=== PATIENT | female | born 1930 | race Caucasian/White ===

== ENCOUNTER 2016-12-16 13:48 | Inpatient (IN) | payer MEDICARE ==
--- NOTE | ~2016-12-16 | HP ---
Unit #: [id number] #: [id number] Patient: SASKIA CAROLINA [id number] [address] [place], [place] [address] [id number] I MR#: [id number] NAME: SASKIA CAROLINA ROOM: 55 Age: 86 Sex: F Admission Date: 12/16/2016 : 1930 Attending Physician: Brennen Barrow M.D. Primary Care Physician: Melchor Serna M.D. HISTORY AND PHYSICAL REASON FOR ADMISSION Atrial fibrillation with RVR. HISTORY OF PRESENT ILLNESS The patient is an 86-year-old white female who is known to Dr. Barrow for a history of paroxysmal atrial fibrillation, status post cardioversion four to five years ago, hypertension, and COPD. Patient presented to [facility] ED on December 16, 2016, at 11 a.m., with complaints of palpitations. Patient states that the palpitations began Friday night when she took her normal scheduled meds. She states that the palpitations seemed to calm down where she was able to go to bed and sleep, and then when she woke up the next day, she noted that she still was having some palpitation feelings. She took her meds again on Friday; however, this time she did not notice any real relief from it. She did not present to the ER until today at 11 a.m. because she became more short of breath. Patient denies any kind of chest pain, pressure, or tightness, no nausea, vomiting, or diarrhea, no fevers, no syncope, and no palpitations prior to Friday night. Patient also has noted some swelling in her lower extremities. She does take Lasix as needed at home for swelling and states that the swelling just developed over the last day or so, but she did not take her Lasix today. Patient had a cardiac catheterization in June 2015 that showed mild , 50% proximal LAD stenosis, 50-60% mid RCA stenosis, and EF of 60%. On arrival to the ED, the patient's blood pressure was noted to be 99/87, pulse 160, temperature 97.8, and saturations were 93% on room air. EKG in the ER revealed atrial fibrillation with RVR with a rate of 151. Patient was initially started on a Cardizem drip. However, shortly after getting the Cardizem, patient's blood pressure dropped to systolic of 70. Therefore, patient had to have the Cardizem turned off. She was given a 500 mL bolus, as well as 150 mg amiodarone bolus. We are asked to see the patient and admit for evaluation of atrial fibrillation with RVR. PAST MEDICAL HISTORY 1. Paroxysmal atrial fibrillation, status post cardioversion four to five years ago. She has been in normal sinus rhythm since. Last EKG here was in 2014 that did show normal sinus rhythm. 2. Hypertension. 3. Chronic obstructive pulmonary disease but not on home O2. 4. Cardiac catheterization in June 2015 that showed mild , 50% proximal LAD stenosis, 50-60% mid RCA, and an EF of 60%. PAST SURGICAL HISTORY Unit #: [id number] #: [id number] Patient: SASKIA CAROLINA 1. Cholecystectomy. 2. Right knee surgery. 3. Left hip surgery. 4. Left knee arthroscopy. SOCIAL HISTORY Patient has never been a smoker but has had some previous secondhand smoke exposure from her approximately 20 years ago. FAMILY HISTORY No known family history of heart disease. ALLERGIES SULFA AND ASPIRIN. HOME MEDICATIONS 1. Vitamin C 500 mg p.o. daily. 2. Vitamin B 1 tab p.o. daily. 3. Coumadin 5 mg p.o. every day except Mondays and Fridays when she takes 2.5 mg. 4. Alprazolam 0.5 mg p.o. 3 times daily as needed for anxiety. 5. Calcium plus vitamin D3 at 600 mg p.o. daily. 6. Cardizem 240 mg p.o. daily. 7. Neurontin 300 mg p.o. 3 times daily. 8. Meclizine 25 mg p.o. as needed for dizziness. 9. Lawnside 10/325 at 1 tab p.o. every 6 hours as needed for pain. 10. Amiodarone 100 mg p.o. daily. 11. Pramipexole dihydrochloride 0.25 mg p.o. twice daily. 12. Phenergan 25 mg p.o. as needed for nausea. 13. Tylenol 325 mg p.o. every 6 hours as needed for pain. 14. VESIcare 5 mg p.o. daily. REVIEW OF SYSTEMS See History of Present Illness. PHYSICAL EXAMINATION GENERAL: This is an 86-year-old white female who is alert, oriented x3, and in no apparent distress. VITAL SIGNS: Blood pressure 89/53, pulse 134, temperature 98.2, and respirations 16. HEENT: Pupils are equal, round, and reactive. Oral mucosa is moist. NECK: No JVD, no thyromegaly, no lymphadenopathy. HEART: S1 and S2, irregularly irregular. LUNGS: Diminished. ABDOMEN: Soft. Bowel sounds positive. Nontender and nondistended. EXTREMITIES: With 2+ bilateral (1) edema. NEUROLOGICAL: No neuro deficits noted. DIAGNOSTIC STUDIES LABORATORY: No labs have been resulted at this time. CMP, magnesium, TSH, CBC, and PT-INR have been ordered, and results are pending. IMAGING: Chest x-ray pending. IMPRESSION 1. Atrial fibrillation with RVR with a history of paroxysmal atrial fibrillation with cardioversion four to five years ago. 2. Hypertension, now with hypotension. Unit #: [id number] #: [id number] Patient: SASKIA CAROLINA 3. Chronic obstructive pulmonary disease. PLAN Discussed the plan of care with Dr. Barrow via the phone, who wants the patient to be placed on an amiodarone drip and also to give a one-time dose of digoxin until the labs are resulted and kidney function is verified. Will give one dose of IV digoxin of 0.25 mg now. Will check on labs, as well as obtain a 2D echo and will start therapeutic Lovenox dose at 1 mg/kg subcutaneous until INR is known. Dr. Barrow to see with further recommendations. Further recommendations pending current workup, as well as lab results. Dictated by Ruthy Rivers APRN for Amanda Arita TD: 12/16/2016 21:46 JOB #: [id number] HISTORY AND PHYSICAL X X HISTORY AND PHYSICAL
--- NOTE | ~2016-12-16 | DS ---
Unit #: [id number] #: [id number] Patient: SASKIA CAROLINA [id number] [address] [address] [id number] I MR#: [id number] NAME: SASKIA CAROLINA. ROOM: [facility] Age: 86 Sex: F Admission Date: 12/17/2016 : 1930 Discharge Date: 12/21/2016 Attending Physician: Brennen Barrow M.D. Primary Care Physician: Melchor Serna M.D. DISCHARGE SUMMARY DISCHARGE DIAGNOSES 1. Acute hypoxic respiratory failure. 2. Paroxysmal atrial fibrillation with recurrent atrial fibrillation with rapid ventricular response on chronic anticoagulation with Coumadin. 3. Acute systolic congestive heart failure. 4. Acute on chronic left ventricular ejection fraction of 20% to 25%. 5. Valvular heart disease with severe aortic stenosis and mitral regurgitation, with moderate to severe tricuspid regurgitation. 6. Moderate to severe pulmonary hypertension. 7. Borderline hypotension. 8. With a history of hypertension. 9. Chronic obstructive pulmonary disease. 10. Indeterminate troponin. DISCHARGE MEDICATIONS 1. Albuterol/Atrovent 3 mL inhalation q.i.d. and p.r.n. 2. Acetaminophen 325, one to two tabs p.o. q.6 hours. p.r.n. pain. 3. Magnesium oxide 400 mg 1 tab p.o. b.i.d. 4. Warfarin 2.5 mg p.o. daily. 5. Neurontin 300 mg p.o. t.i.d. 6. Zofran 4 mg IV q.6 hour p.r.n. nausea. 7. Mirapex 0.25 mg p.o. q.h.s. 8. Lanoxin 0.25 mg p.o. daily. 9. Sotalol 60 mg p.o. b.i.d. 10. Bisacodyl 5 mg p.o. b.i.d. p.r.n. constipation. 11. MiraLAX 17 g p.o. daily p.r.n. constipation. 12. Furosemide 20 mg p.o. b.i.d. 13. VESIcare 5 mg p.o. daily. 14. Vitamin B complex with vitamin C 1 tab p.o. daily. 15. Hydrocodone 10/325 one tab p.o. q.6 hours p.r.n. pain. 16. Calcitonin 3700 IU/3.7 mL nasal spray one spray in one nostril daily, alternating nostrils. 17. Protonix 40 mg p.o. daily. 18. Calcium plus vitamin D 500 mg p.o. daily. 19. Potassium chloride 20 mEq tablets, 2 tablets p.o. daily. 20. Ascorbic acid 500 mg p.o. daily. HOSPITAL COURSE This is a pleasant 86-year-old female with a past medical history of paroxysmal atrial fibrillation with also a history of cardioversion four to five years ago, hypertension, and COPD. She initially presented to [facility] emergency room on 12/16/2016 with complaints of palpitations. Patient was found to be in Unit #: [id number] #: [id number] Patient: SASKIA CAROLINA atrial fibrillation with RVR. She denied any complaints of chest pain, pressure or tightness. No nausea, vomiting or diarrhea. No fever, syncope or palpitations prior to presentation to the emergency department. She did report she had some swelling in her lower extremities and takes Lasix at home as needed. Of note, the patient did have cardiac catheterization in 06/2015 that showed mild aortic stenosis, 50% proximal LAD stenosis, and 50% to 60% mid RCA stenosis and an EF of 60%. In the emergency room the patient was started initially on a Cardizem drip; however, her blood pressure did not tolerate that and the drip was discontinued. She was give IV fluids, as well as 150 mg amiodarone bolus. Pulmonary was also consulted during this admission secondary to acute hypoxic respiratory failure. The patient was placed on BiPAP overnight and was doing better. She has since been weaned to high flow oxygen during the day and wears BiPAP at night. During this hospitalization the patient had a repeat 2D echocardiogram, which showed severely reduced left ventricular ejection fraction, which was noted to be 20% to 25%, moderate to severe dilated left atrium, mildly dilated right ventricle, severe aortic stenosis was noted, as well as severe mitral regurgitation. The patient also had moderate to severe tricuspid regurgitation, RVSP was 50 mmHg. The patient was also noted to be in acute on chronic systolic congestive heart failure and was diuresed accordingly. Her EKG showed atrial fibrillation with RVR. No acute ischemic change. Her troponin levels remained indeterminate throughout the hospitalization with a downward trend. She did not rule in for any acute myocardial infarction. It was notable throughout her hospitalization. The patient's blood pressure did continue to rule low. Therefore, her calcium channel rao was discontinued secondary to hypotension and she was started on sotalol for heart rate control. She was unable also to tolerate beta-rao or heart calcium channel rao for heart control, secondary to hypotension. Also her Coumadin dose was discontinued during this admission to 2.5 mg p.o. q.h.s. At present she is resting in bed. She appears comfortable. There is no complaints of chest pain or shortness of breath. She remains on high flow oxygen during the day and will be placed on BiPAP in the evening. The patient is a DNR. Her cardiac rhythm has remained stable. She does have periods still of rapid atrial fibrillation, rate in the 110s and her blood pressure has remained borderline low but her mean has remained greater than 60. ENTRY LEVEL ACCOUNT MANAGER Pulmonary, Dr. Toney. DIAGNOSTIC STUDIES IMAGING STUDIES: Last chest x-ray showed no evidence of pneumothorax, improvement of small bilateral pleural effusions were noted with improved bilateral lung opacities. There is persistent basilar atelectasis versus pneumonia. Cardiomegaly is noted. Calcified of the thoracic aorta is noted. Chest x-ray of the abdomen was performed, which showed moderate gaseous distention of the stomach. No air filled loops of the larger small bowel. Moderate stool burden. Postop changes of the left hip replacement and lumbar surgery. Unit #: [id number] #: [id number] Patient: SASKIA CAROLINA LABORATORY STUDIES: Glucose 87, BUN 25, creatinine 0.7, sodium 131, potassium 4.1, chloride 99, CO2 28, phosphorus 3.2, albumin 2.9. Liver function tests were normal. TSH 0.42. Digoxin level was 1.8. PT 31.4, INR 2.9, hemoglobin 12.6, hematocrit 38.3, WBC 6.8, platelet 278. PHYSICAL EXAMINATION VITAL SIGNS: Temperature 98.5, respiratory rate 20, pulse 96-118. Highest blood pressure was 131/49, lowest being 87/53, BMI 35. GENERAL: This is a pleasant, obese, elderly female who is in no acute distress. HEENT: Pupils are equal and round. Oral mucosa is moist. NECK: No JVD. No thyromegaly. No lymphadenopathy. HEART: S1 and S2. Positive for systolic murmur best heard at the base, irregularly irregular. LUNGS: Clear to auscultation. No adventitious breath sounds. No rales, rhonchi and no wheezes. ABDOMEN: Soft, obese, nontender, and nondistended. EXTREMITIES: Pulses are palpable. No leg edema, clubbing or cyanosis noted. NEUROLOGIC: She is awake, alert and oriented. Moves all extremities equally. Follows commands with ease. DISCHARGE INSTRUCTIONS Patient has been seen and evaluated by Dr. Barrow today, as well as by the pulmonary physician, Dr. Toney. It has been determined that she is stable for transfer to [facility] today. Her cardiac rhythm remains atrial fibrillation with intermittent fast rates. She is on chronic anticoagulation with Coumadin and her INR is therapeutic. Her blood pressure is borderline low. This was discussed with Dr. Barrow and he is okay with that as long as her mean arterial pressures are above 60, which it has been. The patient, during hospitalization, has been unable to tolerate calcium channel blockers or beta-blockers secondary to severe hypotension. Therefore, she was changed over to antiarrhythmic with sotalol. She will be discharged with high flow O2 during the day and will be placed on BiPAP in the evening. Please see above for discharge medications. The importance of fluid restriction and low sodium was discussed with the patient. It has been determined she is okay to [facility] to a nonmonitored bed. She is also advised to follow up with Dr. Parmar in approximately three to four weeks. She will be sent later today via EMS. Patient is a DNR. Dictated by... Nette Enriquez A.P.R.N. for Amanda Juarez/alex TD: 12/21/2016 16:10 JOB #: [id number] Unit #: [id number] #: [id number] Patient: SASKIA CAROLINA DISCHARGE SUMMARY X Nette Enriquez APRN X DISCHARGE SUMMARY
--- NOTE | ~2016-12-16 | CR7 ---
[facility] A Service of [facility] RADIOLOGY TEXT RESULTS PATIENT: SASKIA CAROLINA LOCATION: [address] : [birth year] UNIT #: [id number] AGE: [address]: Brennen Barrow MD SEX: F ORDER DR: [id number] [facility] [address] [place], [place] [address] [id number] I MR#: [id number] #: [id number] NAME: SASKIA CAROLINA. : 1930 SEX: F STUDY DATE/TIME: 12/17/2016 18:33 UNIT: [facility] ROOM: [facility] STUDY DESCRIPTION: CR Abdomen Single AP View Attending Physician: Brennen Barrow M.D. Ordering Physician: Diaz Toney M.D. Primary Care Physician: Melchor Serna M.D. MEDICAL IMAGING REPORT This report is preliminary unless electronic signature is present EXAM Frontal abdomen, 12/17/2016 INDICATIONS Abnormal abdominal distension, short of air, pain, nausea symptoms a week. TECHNIQUE Frontal abdomen was performed. COMPARISON 01/17/2016 FINDINGS The bones are osteoporotic. The patient is status post total left hip replacement. There are vertebroplasty/kyphoplasty changes at L4 and L5. There is gaseous distension of the stomach. No dilated air-filled loops of bowel are seen. This may reflect fluid-filled loops of bowel. Moderate stool burden in the rectum and right colon. No mass effect or concerning calcifications. Bibasilar opacities may reflect edema or infiltrates. This could be better assessed with a dedicated chest x-ray. IMPRESSION 1. There is moderate gaseous distension of the stomach, no dilated air-filled loops of large or small bowel. 2. Moderate stool burden in the rectosigmoid colon and right colon. 3. Bibasilar infiltrates. This would be better assessed with a dedicated chest x-ray. 4. Postop changes of left hip replacement and lumbar surgery. Dictated by... Sher Godoy M.D. [facility] A Service of [facility] RADIOLOGY TEXT RESULTS PATIENT: SASKIA CAROLINA LOCATION: [address] : [birth year] UNIT #: [id number] AGE: [address]: Brennen Barrow MD SEX: F ORDER DR: THIS IS AN ELECTRONICALLY VERIFIED REPORT Sher Godoy M.D. at 12/18/2016 7:46 AM DERIAN/anay TD: 12/18/2016 03:18 JOB #: [id number] MEDICAL IMAGING REPORT COPY
--- NOTE | ~2016-12-16 | CR72 ---
[facility] A Service of [facility] RADIOLOGY TEXT RESULTS PATIENT: SASKIA CAROLINA LOCATION: [address] : [birth year] UNIT #: [id number] AGE: [address]: Brennen Barrow MD SEX: F ORDER DR: [id number] [facility] [address] [place], [place] [address] [id number] I MR#: [id number] Acc #: [id number] NAME: SASKIA CAROLINA : 1930 SEX: F STUDY DATE/TIME: 12/19/2016 4:21 UNIT: [facility] ROOM: [facility] STUDY DESCRIPTION: CR Chest Single View Portable Attending Physician: Brennen Barrow M.D. Ordering Physician: Diaz Toney M.D. Primary Care Physician: Melchor Serna M.D. MEDICAL IMAGING REPORT This report is preliminary unless electronic signature is present EXAM Portable AP view of the chest COMPARISON December 18, 2016, December 17, 2016 and December 16, 2016. INDICATION 86-year-old female with dyspnea and chest palpitations for 2 days. History of atrial fibrillation with RVR. History of hypertension. FINDINGS/IMPRESSION No evidence of pneumothorax. There are improved now small bilateral pleural effusions with improved bilateral lung opacities. There is persistent bibasilar atelectasis versus pneumonia. Cardiomegaly is again noted. Calcification of the thoracic aorta. Dictated by... Twin Moore M.D. THIS IS AN ELECTRONICALLY VERIFIED REPORT Twin Moore M.D. at 12/20/2016 8:06 AM GISELE/garima TD: 12/19/2016 06:33 JOB #: [id number] MEDICAL IMAGING REPORT COPY
--- NOTE | ~2016-12-16 | EKG ---
PATIENT: SASKIA CAROLINA UNIT #: [id number] Ventricular Rate: 118 BPM Atrial Rate: 150 BPM QRS Duration: 86 ms Q-T Interval: 318 ms QTC Calculation(Bezet): 445 ms Calculated R Pelham: 59 degrees Calculated T Pelham: 171 degrees Diagnosis Line: Atrial fibrillation with rapid ventricular Diagnosis Line: response Diagnosis Line: ST and T wave abnormality, consider inferior Diagnosis Line: ischemia or digitalis effect Diagnosis Line: ST and T wave abnormality, consider anterolateral Diagnosis Line: ischemia or digitalis effect Diagnosis Line: Abnormal ECG Diagnosis Line: When compared with ECG of 18-DEC-2016 06:25, Diagnosis Line: No significant change was found Diagnosis Line: Confirmed by DEANN MELO MD ([id number]) on 12/21/2016 Diagnosis Line: 5:54:13 PM INTERPRETING MD: LORIE MADRIGAL
--- NOTE | ~2016-12-16 | CR72 ---
[facility] A Service of [facility] RADIOLOGY TEXT RESULTS PATIENT: SASKIA CAROLINA LOCATION: [place] [address] : 32 UNIT #: [id number] AGE: [address]: Brennen Barrow MD SEX: F ORDER DR: [id number] [facility] [address]. [place], [place] [address] [id number] I MR#: [id number] Acc #: [id number] NAME: SASKIA CAROLINA. : 1930 SEX: F STUDY DATE/TIME: 12/16/2016 18:01 UNIT: [facility] ROOM: [facility] STUDY DESCRIPTION: CR Chest Single View Portable Attending Physician: Brennen Barrow M.D. Ordering Physician: Kiah Parmar M.D. Primary Care Physician: Melchor Serna M.D. MEDICAL IMAGING REPORT This report is preliminary unless electronic signature is present EXAM Frontal chest, 12/16/2016. HISTORY 86-year-old female with shortness of air, tachycardia. Symptom began 3 days ago. Hypertension. COPD. TECHNIQUE Frontal chest. COMPARISON STUDIES 06/15/2015 FINDINGS Cardiac silhouette is enlarged, but stable. There is vascular congestion and interstitial edema, most characteristic of volume overload and congestive heart failure. Atelectasis or a small amount of fluid associated with the minor fissure on the right. No pneumothorax. No significant effusion. IMPRESSION Cardiomegaly and imaging features most characteristic of congestive heart failure and volume overload. No pneumothorax. STAT * RESULT Dictated by... Sher Godoy M.D. THIS IS AN ELECTRONICALLY VERIFIED REPORT Sher Godoy M.D. at 12/16/2016 11:25 PM [facility] A Service of [facility] RADIOLOGY TEXT RESULTS PATIENT: SASKIA CAROLINA LOCATION: [facility]- : 32 UNIT #: [id number] AGE: [address]: Brennen Barrow MD SEX: F ORDER DR: DERIAN/paola TD: 12/16/2016 19:23 JOB #: [id number] MEDICAL IMAGING REPORT COPY
--- NOTE | ~2016-12-16 | CR72 ---
[facility] A Service of [facility] RADIOLOGY TEXT RESULTS PATIENT: SASKIA CAROLINA LOCATION: [place] [address] : 32 UNIT #: [id number] AGE: [address]: Brennen Barrow MD SEX: F ORDER DR: [id number] [facility] [address] [place], [place] [address] [id number] I MR#: [id number] Acc #: [id number] NAME: SASKIA CAROLINA. : 1930 SEX: F STUDY DATE/TIME: 12/17/2016 9:40 UNIT: [facility] ROOM: [facility] STUDY DESCRIPTION: CR Chest Single View Portable Attending Physician: Brennen Barrow M.D. Ordering Physician: Diaz Toney M.D. Primary Care Physician: Melchor Serna M.D. MEDICAL IMAGING REPORT This report is preliminary unless electronic signature is present EXAM Portable chest 12/17 INDICATIONS Shortness of air, tachycardia since 12/13/2016. History of hypertension. FINDINGS AP portable chest compared 12/16/2016. Cardiomegaly is stable as is vascular congestion. There are trace effusions bilaterally. There is probable mild edema which is essentially stable. No pneumothorax. Dictated by... Leo Hendricks Jr., M.D. THIS IS AN ELECTRONICALLY VERIFIED REPORT Leo Hendricks Jr., M.D. at 12/17/2016 3:50 PM RLK/vish TD: 12/17/2016 10:52 JOB #: [id number] MEDICAL IMAGING REPORT COPY
--- NOTE | ~2016-12-16 | CO ---
Unit #: [id number] #: [id number] Patient: SASKIA CAROLINA [id number] [facility]. [place], [place] [address] [id number] I MR#: [id number] NAME: SASKIA CAROLINA. ROOM: 55 Age: 86 Sex: F Admission Date: 12/17/2016 : 1930 Attending Physician: Brennen Barrow M.D. Primary Care Physician: Melchor Serna M.D. CONSULTATION REPORT REASON FOR CONSULT Atrial fibrillation. HISTORY This is an 86-year-old lady with a history of paroxysmal atrial fibrillation, hypertension, COPD. She is a patient of Dr. Barrow. The patient presented yesterday, 12/16/16, with worsening shortness of breath. She had had 2 days of worsening palpitations not responding to her home medications; however, the patient developed progressive shortness of air. She denies any sort of increase in salt intake, but she is having increased lower extremity edema. She has been under a lot of stress lately, and she attributes some of it to that. The patient says that she has had no sick contacts, no fevers, no chills, no nausea, no vomiting, no diarrhea. She has dizziness, but that is chronic when she stands up. The patient also has no significant history of coronary artery disease. The patient is not on home oxygen. On arrival to emergency room the patient was found to be hypotensive (99/67) but hypoxic. The patient was placed on BiPAP overnight and was doing better. The patient was placed on Oxymizer this morning. She is working pretty hard on 8 liters Oxymizer; however, blood gas is good at 7.47/33/70. We have been asked to see for pulmonary edema. PAST MEDICAL HISTORY Significant for paroxysmal atrial fibrillation, sinus rhythm, hypertension, chronic obstructive pulmonary disease not on home O2, cardiac catheterization in 2014 showed mild and mild coronary artery disease. PAST SURGICAL HISTORY Cholecystectomy, right knee surgery, left hip surgery, left knee arthroscopy. SOCIAL HISTORY The patient has never been a smoker. She has had some secondhand smoke. FAMILY HISTORY Positive for heart disease. ALLERGIES Sulfa and aspirin. HOME MEDICATIONS 1. Vitamin C 500 mg p.o. daily. Unit #: [id number] #: [id number] Patient: SASKIA CAROLINA 2. B complex 1 tablet daily. 3. Coumadin 5 mg p.o. every day. 4. Alprazolam 0.5 mg t.i.d. 5. Calcitonin 1 spray daily. 6. Calcium with vitamin D 1 tablet daily. 7. Diltiazem 240 mg daily. 8. Neurontin 300 mg t.i.d. 9. Meclizine 25 mg p.o. p.r.n. q.i.d. 10. [place] 10/325 mg 1 tablet q.6 hours p.r.n. 11. Cordarone 100 mg daily. 12. Pramipexole dihydrochloride 0.25 mg b.i.d. 13. Phenergan 25 mg p.o. p.r.n. 14. Tylenol 325 mg q.6 hours as needed. 15. VESIcare 5 mg p.o. daily. 16. Warfarin 2.5 mg p.o. 2 times a week and 2 mg daily. REVIEW OF SYSTEMS Review of systems is as per the history of present illness; otherwise, a 12-point review of systems is negative. PHYSICAL EXAMINATION VITAL SIGNS: T current 98.6, pulse 59, respiratory rate 20, blood pressure 123/83 this morning, oxygen saturation 91% on 8 liters Oxymizer. Ins 419, outs 800. HEENT: Extraocular movements are intact. Pupils are equal, round and reactive to light. Head is normocephalic, atraumatic. NECK: Neck shows mild accessory muscle use. I cannot tell if there is JVD. There is no significant lymphadenopathy. CHEST: Diffuse crackles bilaterally. CARDIOVASCULAR: Irregular rate, tachycardia. ABDOMEN: Soft, nontender, nondistended. Decreased bowel sounds. EXTREMITIES: Extremities shows edema +1. DIAGNOSTIC STUDIES LABORATORY: Chem-7 on 12/16 - Sodium 140, potassium 3.5, BUN 19, creatinine 0.7, glucose 99, bicarb 26. ABG - 7.42/37.4/65.3. This morning 7.47/33/70. ASSESSMENT AND PLAN 1. A fib (1) . The patient is on Cordarone, is being rate controlled. 2. Respiratory distress. The patient has a chest x-ray, which shows diffuse infiltrates, which is consistent with possible pulmonary edema. Diuretics are being given. The patient is on BiPAP /6; if not better, we will probably increase it to /7. 3. The patient has nausea. On Zofran. 4. The patient has anxiety. Going to give extra dose of Xanax. May need more if she is on BiPAP. Dictated by... Amanda Malone/wyatt TD: 12/17/2016 16:18 JOB #: [id number] Unit #: [id number] #: [id number] Patient: SASKIA CAROLINA CONSULTATION REPORT X Jag Toney MD X CONSULTATION REPORT
--- NOTE | ~2016-12-16 | CR72 ---
[facility] A Service of [facility] & [facility] RADIOLOGY TEXT RESULTS PATIENT: SASKIA CAROLINA LOCATION: [address] : 32 UNIT #: [id number] AGE: [address]: Brennen Barrow MD SEX: F ORDER DR: [id number] [facility] [address] [facility]. [place], [place] [address] [id number] I MR#: [id number] Acc #: [id number] NAME: SASKIA CAROLINA. : 1930 SEX: F STUDY DATE/TIME: 12/21/2016 04:49 UNIT: [facility] ROOM: [facility] STUDY DESCRIPTION: CR Chest Single View Portable Attending Physician: Brennen Barrow M.D. Ordering Physician: Diaz Toney M.D. Primary Care Physician: Melchor Serna M.D. MEDICAL IMAGING REPORT This report is preliminary unless electronic signature is present EXAM Portable chest. DATE OF EXAM 12/21/2016, at 04:49. INDICATIONS Shortness of air and heart palpitations. History of atrial fibrillation. FINDINGS AP portable chest compared with 12/19/2016. Cardiomegaly is stable. There is worsening vascular congestion with bilateral infiltrates. This presumably reflects worsening pulmonary edema. There are small bilateral effusions. No pneumothorax. Dictated by... Leo Hendricks Jr., M.D. THIS IS AN ELECTRONICALLY VERIFIED REPORT Leo Hendricks Jr., M.D. at 12/21/2016 11:01 PM BETO/abby TD: 12/21/2016 18:20 JOB #: [id number] MEDICAL IMAGING REPORT COPY
--- NOTE | ~2016-12-16 | EKG ---
PATIENT: SASKIA CAROLINA UNIT #: [id number] Ventricular Rate: 109 BPM Atrial Rate: 133 BPM QRS Duration: 88 ms Q-T Interval: 338 ms QTC Calculation(Bezet): 455 ms Calculated R [place]: 27 degrees Calculated T [place]: -156 degrees Diagnosis Line: Atrial fibrillation with rapid ventricular Diagnosis Line: response Diagnosis Line: ST and T wave abnormality, consider anterolateral Diagnosis Line: ischemia or digitalis effect Diagnosis Line: Left ventricular hypertrophy Diagnosis Line: Abnormal ECG Diagnosis Line: When compared with ECG of 20-DEC-2016 06:52, Diagnosis Line: (unconfirmed) Diagnosis Line: No significant change was found Diagnosis Line: Confirmed by DEANN MELO MD ([id number]) on 12/21/2016 Diagnosis Line: 6:02:21 PM INTERPRETING MD: LORIE MADRIGAL
--- NOTE | ~2016-12-16 | EKG ---
PATIENT: SASKIA CAROLINA UNIT #: [id number] Ventricular Rate: 126 BPM Atrial Rate: 133 BPM QRS Duration: 84 ms Q-T Interval: 268 ms QTC Calculation(Bezet): 388 ms Calculated R [place]: 27 degrees Calculated T [place]: 160 degrees Diagnosis Line: Atrial fibrillation with rapid ventricular Diagnosis Line: response Diagnosis Line: Nonspecific ST and T wave abnormality , probably Diagnosis Line: digitalis effect Diagnosis Line: Abnormal ECG Diagnosis Line: When compared with ECG of 16-DEC-2016 11:31, Diagnosis Line: (unconfirmed) Diagnosis Line: ST no longer depressed in Anterior leads Diagnosis Line: Inverted T waves have replaced nonspecific T wave Diagnosis Line: abnormality in Anterior leads Diagnosis Line: Confirmed by MCKENZIE BAKER MD ([id number]) on Diagnosis Line: 12/17/2016 12:08:11 PM INTERPRETING MD: WILY
--- NOTE | ~2016-12-16 | CR72 ---
[facility] A Service of [facility] RADIOLOGY TEXT RESULTS PATIENT: SASKIA CAROLINA LOCATION: [address] : 32 UNIT #: [id number] AGE: [address]: Brennen Barrow MD SEX: F ORDER DR: [id number] [facility] [address] [facility]. [place], [place] [address] [id number] I MR#: [id number] Acc #: [id number] NAME: SASKIA CAROLINA. : 1930 SEX: F STUDY DATE/TIME: 12/18/2016 2:27 UNIT: [facility] ROOM: [facility] STUDY DESCRIPTION: CR Chest Single View Portable Attending Physician: Brennen Barrow M.D. Ordering Physician: Diaz Toney M.D. Primary Care Physician: Melchor Serna M.D. MEDICAL IMAGING REPORT This report is preliminary unless electronic signature is present EXAM Portable AP view of the chest COMPARISON December 09, 2016 and December 16, 2016 as well as June 15, 2015. INDICATION 86-year-old female inpatient with ongoing respiratory failure. Dyspnea. FINDINGS AND IMPRESSION No pneumothorax. There is new leftward patient rotation limiting evaluation of the cardiomediastinal silhouette. There is likely persistent cardiomegaly and mild mediastinal widening. Calcification of the aortic arch is noted. There appear to be increasing bilateral pleural effusions, small on the right and small to moderate on the left with associated increasing bibasilar mid lung opacities bilaterally. There is cephalization of pulmonary vasculature and findings could reflect worsening pulmonary edema. Pneumonia is not excluded. No pneumothorax. Dictated by... Twin Moore M.D. THIS IS AN ELECTRONICALLY VERIFIED REPORT Twin Moore M.D. at 12/20/2016 7:39 AM Nelson TD: 12/18/2016 09:28 JOB #: [id number] MEDICAL IMAGING REPORT COPY
--- NOTE | ~2016-12-16 | EKG ---
PATIENT: SASKIA CAROLINA UNIT #: [id number] Ventricular Rate: 122 BPM Atrial Rate: 127 BPM QRS Duration: 86 ms Q-T Interval: 356 ms QTC Calculation(Bezet): 507 ms Calculated R [place]: 68 degrees Calculated T [place]: -177 degrees Diagnosis Line: Atrial fibrillation with rapid ventricular Diagnosis Line: response Diagnosis Line: ST and T wave abnormality, consider anterolateral Diagnosis Line: ischemia or digitalis effect Diagnosis Line: Abnormal ECG Diagnosis Line: When compared with ECG of 17-DEC-2016 07:33, Diagnosis Line: Inverted T waves have replaced nonspecific T wave Diagnosis Line: abnormality in Lateral leads Diagnosis Line: Confirmed by DEANN MELO MD ([id number]) on 12/18/2016 Diagnosis Line: 7:39:07 PM INTERPRETING MD: LORIE MADRIGAL
--- NOTE | ~2016-12-16 | EKG ---
PATIENT: SASKIA CAROLINA UNIT #: [id number] Ventricular Rate: 151 BPM Atrial Rate: 326 BPM QRS Duration: 86 ms Q-T Interval: 294 ms QTC Calculation(Bezet): 465 ms Calculated R [place]: 30 degrees Calculated T [place]: -167 degrees Diagnosis Line: Atrial fibrillation with rapid ventricular Diagnosis Line: response Diagnosis Line: ST depression, consider subendocardial injury Diagnosis Line: anterolaterally Diagnosis Line: Nonspecific T wave abnormality Diagnosis Line: Abnormal ECG Diagnosis Line: When compared with ECG of 16-DEC-2016 11:31, Diagnosis Line: (unconfirmed) Diagnosis Line: Rhythm no longer sinus Diagnosis Line: Nonspecific T wave abnormality has replaced Diagnosis Line: inverted T waves in Anterior leads Diagnosis Line: Confirmed by MCKENZIE BAKER MD ([id number]) on Diagnosis Line: 12/17/2016 11:47:55 AM INTERPRETING MD: WILY
[2016-12-16 12:38] LABS: BASOPHIL% 0.6 % (0-2.5); EOSINOPHIL# 0.1 X10e3 (0-0.7); EOSINOPHIL% 1.9 % (0.0-7.0); HEMATOCRIT 37.2 % (35.0-45.0); HEMOGLOBIN 12.3 gm/dL (12.0-16.0); LYMPHOCYTE# 1.5 X10e3 (1.0-3.5); LYMPHOCYTE% 23.9 % (17.0-45.0); MEAN CELL VOLUME 96.1 FL (83-96); MEAN CORPUSCULAR HEMOGLOBIN 31.9 PG (28-34); MEAN CORPUSCULAR HGB CONC 33.2 g/dL (30-36); MEAN PLATELET VOLUME 7.1 FL (6.5-11.5); MONOCYTE# 0.7 X10e3 (0-1.0); NEUTROPHIL# 3.7 X10e3 (1.5-7.1); NEUTROPHIL% 61.6 % (40-75); PLATELET COUNT 247 X10e3 (140-420); RED BLOOD COUNT 3.87 X10e (3.90-5.30); RED CELL DISTRIBUTION WIDTH 14.5 % (11.0-15.5); WHITE BLOOD COUNT 6.1 X10e3 (4.0-10.5)
[2016-12-16 12:39] LABS: POC - CKMB 1.8 ng/mL (0.0-7.9); POC - TROPONIN <0.05 ng/mL (<=0.05)
[2016-12-16 12:42] LABS: DIFF IND NO
[2016-12-16 12:52] LABS: INR 1.7; PARTIAL THROMBOPLASTIN TIME 32.8 SECONDS (23.5-31.3); PROTHROMBIN TIME (PATIENT) 17.8 SECONDS (9.6-11.5)
[2016-12-16 13:03] LABS: ALBUMIN SERUM 3.7 g/dL (3.5-5.0); ALKALINE PHOSPHATASE 60 U/L (32-92); ALT (SGPT) 14 U/L (10-40); AST (SGOT) 17 U/L (10-42); BILIRUBIN, DIRECT 0.2 mg/dL (0.0-0.2); BILIRUBIN,INDIRECT 0.8 mg/dL (0.0-0.9); BLOOD UREA NITROGEN 19 mg/dL (9-23); BUN/CREATININE RATIO 27.14; CALCIUM SERUM 8.9 mg/dL (8.4-10.2); CARBON DIOXIDE 26 mmol/L (22-31); CHLORIDE 109 mmol/L (100-111); CREATININE SERUM 0.7 mg/dL (0.6-1.4); GLOM FILT RATE Estimated ABOVE60 mL/min (>60); GLUCOSE FASTING 99 mg/dL (70-110); MAGNESIUM 1.8 mg/dL (1.6-3.0); POTASSIUM 3.5 mmol/L (3.5-5.1); SODIUM 140 mmol/L (135-145)
[~2016-12-16 13:48] MED LIST: ACETAMINOPHEN325 MG PO; ALDACTONE100 MG PO; ALPRAZOLAM ODT0.5 MG PO; ALPRAZOLAM PO; ALPRAZOLAM0.25 MG PO; ALPRAZOLAM0.5 MG; ALPRAZOLAM0.5 MG PO; AMBIZINE25 MG PO; AMIODARONE HCL100 MG PO; ANEXSIA 7.5/3251 TA1 PO; ATENOLOL PO; B-COMPLEX PLUS1 EACH PO; CALCITONIN-SAL3.7 ML; CALCIUM 600 +1 EA13 PO; CALCIUM 600 +1 EA14 PO; CARDIZEM; CARDIZEM CD PO; CARDIZEM CD240 M1; CARTIA XT PO; CELEBREX PO; CELEXA20 MG; CELEXA20 MG PO; CORDARONE200 M1; CORDARONE200 M1 PO; COUMADIN PO; COUMADIN2.5 MG PO; COUMADIN5 MG; COUMADIN5 MG PO; DILTIAZEM 24HR240 M1 PO; DILTIAZEM 24HR240 M2 PO; DILTIAZEM 24HR240 MG PO; FLEXERIL PO; HYDROCODON-ACE1 EACH; HYDROCODONE-A1 UDTA4 PO; KEFLEX PO; LEVOFLOXACIN500 MG; LISINOPRIL10 MG PO; LORTAB 10/500 T1 TAB PO; LORTAB 2.5/5001 TAB PO; LORTAB 5/500 TA1 TA1 PO; LORTAB 7.5-5001 TAB PO; LOSARTAN PO; MEDI-MECLIZINE25 M1 PO; MIACALCIN4 ML; MIRAPEX0.25 MG PO; MOTION RELIEF25 MG PO; MOTION SICKNESS25 M4; MULTI VITAMIN1 EACH PO; MULTIVITAMIN1 UDCAP PO; NABUMETONE PO; NAPROSYN500 MG PO; NAPROXEN PO; NEURONTIN100 MG PO; NEURONTIN300 MG PO; NORCO 10/3251 TAB PO; NORCO 7.5-3251 EACH PO; OMEPRAZOLE20 M2 PO; PACERONE100 MG PO; PATIENT'S PHARMACY; PERCOCET7.5 PO; PHENERGAN25 M1 PO; PHENERGAN25 MG; PRAMIPEXOLE D0.25 MG PO; PREVACID PO; PRILOSEC PO; PRILOSEC20 MG; PRILOSEC20 MG PO; PROAIR HFA8.5 GM IH; PROMETHAZINE HC25 MG; TYLENOL325 M1 PO; TYLOX 5/500 CAP1 CAP PO; VESICARE5 MG PO; VICODIN 5/500 T1 TAB PO; VITAMIN C500 M1 PO; VITAMIN D35000 UNIT PO; WARFARIN SODIU2.5 M1 PO; XANAX0.5 MG PO; [UNRECOGNIZED DRUG - OTHER] PO
[2016-12-16 17:39] LABS: ARTERIAL BLD GAS O2 SATURATION 91.1 % (90.0-100.0); ARTERIAL BLOOD GAS CARBOXY HB 0.9 %sat (0.0-9.0); ARTERIAL BLOOD GAS HCO3 24.7 mmol/L; ARTERIAL BLOOD GAS MET HB 0.5 %sat (0.0-2.0); ARTERIAL BLOOD GAS PCO2 37.4 mmHg (35.0-45.0); ARTERIAL BLOOD GAS pH 7.429 (7.350-7.450)
[2016-12-16 17:40] LABS: ARTERIAL BLOOD GAS ART SITE RIGHT RADIAL; ARTERIAL BLOOD GAS DELIVERY NASAL CANNULA; ARTERIAL BLOOD GAS PO2 65.3 mmHg (80.0-100); ARTERIAL DRAW? YES
[2016-12-17 00:39] LABS: ARTERIAL BLD GAS O2 SATURATION 89.9 % (90.0-100.0); ARTERIAL BLOOD GAS CARBOXY HB 0.9 %sat (0.0-9.0); ARTERIAL BLOOD GAS HCO3 23.5 mmol/L; ARTERIAL BLOOD GAS MET HB 0.6 %sat (0.0-2.0); ARTERIAL BLOOD GAS PCO2 36.3 mmHg (35.0-45.0); ARTERIAL BLOOD GAS pH 7.418 (7.350-7.450)
[2016-12-17 00:40] LABS: ARTERIAL BLOOD GAS ALLEN TEST NORMAL; ARTERIAL BLOOD GAS ART SITE RIGHT RADIAL; ARTERIAL BLOOD GAS DELIVERY OXYMIZER; ARTERIAL BLOOD GAS PO2 61.3 mmHg (80.0-100); ARTERIAL DRAW? YES
[2016-12-17 08:28] LABS: ARTERIAL BLD GAS O2 SATURATION 94.2 % (90.0-100.0); ARTERIAL BLOOD GAS CARBOXY HB 0.8 %sat (0.0-9.0); ARTERIAL BLOOD GAS HCO3 24.3 mmol/L; ARTERIAL BLOOD GAS MET HB 0.5 %sat (0.0-2.0); ARTERIAL BLOOD GAS PCO2 33.3 mmHg (35.0-45.0); ARTERIAL BLOOD GAS pH 7.472 (7.350-7.450)
[2016-12-17 08:29] LABS: ARTERIAL BLOOD GAS ART SITE RIGHT RADIAL; ARTERIAL BLOOD GAS DELIVERY OXYMIZER; ARTERIAL BLOOD GAS PO2 70.2 mmHg (80.0-100); ARTERIAL DRAW? YES
[2016-12-17 08:57] LABS: HEMATOCRIT 37.9 % (35.0-45.0); HEMOGLOBIN 12.6 gm/dL (12.0-16.0); MEAN CELL VOLUME 96.4 FL (83-96); MEAN CORPUSCULAR HGB CONC 33.2 g/dL (30-36); MEAN PLATELET VOLUME 7.5 FL (6.5-11.5); RED BLOOD COUNT 3.93 X10e (3.90-5.30); RED CELL DISTRIBUTION WIDTH 14.7 % (11.0-15.5); WHITE BLOOD COUNT 7.4 X10e3 (4.0-10.5)
[2016-12-17 09:04] LABS: INR 1.6; PROTHROMBIN TIME (PATIENT) 17.6 SECONDS (9.6-11.5)
[2016-12-17 09:43] LABS: BLOOD UREA NITROGEN 16 mg/dL (9-23); CALCIUM SERUM 9.1 mg/dL (8.4-10.2); CARBON DIOXIDE 23 mmol/L (22-31); CHLORIDE 105 mmol/L (100-111); CREATININE SERUM 0.8 mg/dL (0.6-1.4); GLOM FILT RATE Estimated ABOVE60 mL/min (>60); GLUCOSE FASTING 125 mg/dL (70-110); POTASSIUM 4.3 mmol/L (3.5-5.1); SODIUM 139 mmol/L (135-145)
[2016-12-18 05:08] LABS: HEMATOCRIT 38.1 % (35.0-45.0); HEMOGLOBIN 12.7 gm/dL (12.0-16.0); MEAN CELL VOLUME 96.2 FL (83-96); MEAN CORPUSCULAR HGB CONC 33.3 g/dL (30-36); MEAN PLATELET VOLUME 7.7 FL (6.5-11.5); RED BLOOD COUNT 3.96 X10e (3.90-5.30); WHITE BLOOD COUNT 8.1 X10e3 (4.0-10.5)
[2016-12-18 05:11] LABS: INR 1.9; PROTHROMBIN TIME (PATIENT) 20.9 SECONDS (9.6-11.5)
[2016-12-18 06:22] LABS: ALBUMIN SERUM 3.4 g/dL (3.5-5.0); ALKALINE PHOSPHATASE 58 U/L (32-92); ALT (SGPT) 13 U/L (10-40); AST (SGOT) 18 U/L (10-42); BILIRUBIN,TOTAL 1.4 mg/dL (0.2-2.0); BLOOD UREA NITROGEN 19 mg/dL (9-23); BUN/CREATININE RATIO 21.11; CALCIUM SERUM 8.9 mg/dL (8.4-10.2); CARBON DIOXIDE 26 mmol/L (22-31); CHLORIDE 101 mmol/L (100-111); CREATININE SERUM 0.9 mg/dL (0.6-1.4); GLOM FILT RATE Estimated ABOVE60 mL/min (>60); GLUCOSE FASTING 123 mg/dL (70-110); MAGNESIUM 2.1 mg/dL (1.6-3.0); PHOSPHOROUS 3.2 mg/dL (2.5-4.6); POTASSIUM 4.4 mmol/L (3.5-5.1); PROTEIN TOTAL SERUM 6.4 g/dL (6.0-8.3); SODIUM 136 mmol/L (135-145)
[2016-12-19 06:09] LABS: BASOPHIL% 0.5 % (0-2.5); EOSINOPHIL# 0.1 X10e3 (0-0.7); EOSINOPHIL% 0.9 % (0.0-7.0); HEMATOCRIT 39.5 % (35.0-45.0); HEMOGLOBIN 13.2 gm/dL (12.0-16.0); LYMPHOCYTE# 1.7 X10e3 (1.0-3.5); LYMPHOCYTE% 16.9 % (17.0-45.0); MEAN CELL VOLUME 95.8 FL (83-96); MEAN CORPUSCULAR HEMOGLOBIN 31.9 PG (28-34); MEAN CORPUSCULAR HGB CONC 33.3 g/dL (30-36); MEAN PLATELET VOLUME 7.3 FL (6.5-11.5); MONOCYTE# 1.1 X10e3 (0-1.0); MONOCYTE% 10.8 % (3.0-12.0); NEUTROPHIL% 70.9 % (40-75); PLATELET COUNT 284 X10e3 (140-420); RED BLOOD COUNT 4.12 X10e (3.90-5.30); RED CELL DISTRIBUTION WIDTH 14.5 % (11.0-15.5); WHITE BLOOD COUNT 9.9 X10e3 (4.0-10.5)
[2016-12-19 06:15] LABS: DIFF IND NO
[2016-12-19 06:25] LABS: INR 2.3; PARTIAL THROMBOPLASTIN TIME 40.6 SECONDS (23.5-31.3); PROTHROMBIN TIME (PATIENT) 24.9 SECONDS (9.6-11.5)
[2016-12-19 06:54] LABS: BLOOD UREA NITROGEN 28 mg/dL (9-23); CARBON DIOXIDE 30 mmol/L (22-31); CHLORIDE 98 mmol/L (100-111); CREATININE SERUM 0.7 mg/dL (0.6-1.4); GLOM FILT RATE Estimated ABOVE60 mL/min (>60); GLUCOSE FASTING 98 mg/dL (70-110); POTASSIUM 4.6 mmol/L (3.5-5.1); SODIUM 137 mmol/L (135-145)
[2016-12-19 13:58] LABS: ARTERIAL BLD GAS O2 SATURATION 95.2 % (90.0-100.0); ARTERIAL BLOOD GAS CARBOXY HB 0.8 %sat (0.0-9.0); ARTERIAL BLOOD GAS HCO3 30.4 mmol/L; ARTERIAL BLOOD GAS MET HB 0.8 %sat (0.0-2.0); ARTERIAL BLOOD GAS PCO2 41.5 mmHg (35.0-45.0); ARTERIAL BLOOD GAS pH 7.473 (7.350-7.450)
[2016-12-19 13:59] LABS: ARTERIAL BLOOD GAS ART SITE RIGHT RADIAL; ARTERIAL BLOOD GAS DELIVERY HIGHFLOW; ARTERIAL BLOOD GAS PO2 77.4 mmHg (80.0-100); ARTERIAL DRAW? YES
[2016-12-20 04:26] LABS: BASOPHIL% 0.3 % (0-2.5); EOSINOPHIL% 0.6 % (0.0-7.0); HEMATOCRIT 38.8 % (35.0-45.0); HEMOGLOBIN 13.1 gm/dL (12.0-16.0); LYMPHOCYTE# 1.5 X10e3 (1.0-3.5); LYMPHOCYTE% 18.2 % (17.0-45.0); MEAN CELL VOLUME 95.1 FL (83-96); MEAN CORPUSCULAR HGB CONC 33.7 g/dL (30-36); MEAN PLATELET VOLUME 7.6 FL (6.5-11.5); MONOCYTE# 0.8 X10e3 (0-1.0); MONOCYTE% 10.3 % (3.0-12.0); NEUTROPHIL# 5.8 X10e3 (1.5-7.1); NEUTROPHIL% 70.6 % (40-75); PLATELET COUNT 307 X10e3 (140-420); RED BLOOD COUNT 4.08 X10e (3.90-5.30); RED CELL DISTRIBUTION WIDTH 14.3 % (11.0-15.5); WHITE BLOOD COUNT 8.2 X10e3 (4.0-10.5)
[2016-12-20 04:27] LABS: DIFF IND NO
[2016-12-20 04:38] LABS: INR 3.2
[2016-12-20 04:54] LABS: BLOOD UREA NITROGEN 30 mg/dL (9-23); BUN/CREATININE RATIO 42.85; CALCIUM SERUM 8.9 mg/dL (8.4-10.2); CARBON DIOXIDE 28 mmol/L (22-31); CHLORIDE 97 mmol/L (100-111); CREATININE SERUM 0.7 mg/dL (0.6-1.4); GLOM FILT RATE Estimated ABOVE60 mL/min (>60); GLUCOSE FASTING 117 mg/dL (70-110); POTASSIUM 4.6 mmol/L (3.5-5.1); SODIUM 135 mmol/L (135-145)
[2016-12-21 04:34] LABS: HEMATOCRIT 38.3 % (35.0-45.0); HEMOGLOBIN 12.6 gm/dL (12.0-16.0); MEAN CELL VOLUME 95.2 FL (83-96); MEAN CORPUSCULAR HEMOGLOBIN 31.3 PG (28-34); MEAN CORPUSCULAR HGB CONC 32.9 g/dL (30-36); MEAN PLATELET VOLUME 7.6 FL (6.5-11.5); RED BLOOD COUNT 4.03 X10e (3.90-5.30); RED CELL DISTRIBUTION WIDTH 14.7 % (11.0-15.5); WHITE BLOOD COUNT 6.8 X10e3 (4.0-10.5)
[2016-12-21 04:48] LABS: INR 2.9; PROTHROMBIN TIME (PATIENT) 31.4 SECONDS (9.6-11.5)
[2016-12-21 04:54] LABS: BLOOD UREA NITROGEN 25 mg/dL (9-23); BUN/CREATININE RATIO 35.71; CALCIUM SERUM 8.6 mg/dL (8.4-10.2); CARBON DIOXIDE 28 mmol/L (22-31); CHLORIDE 99 mmol/L (100-111); CREATININE SERUM 0.7 mg/dL (0.6-1.4); GLOM FILT RATE Estimated ABOVE60 mL/min (>60); GLUCOSE FASTING 87 mg/dL (70-110); POTASSIUM 4.1 mmol/L (3.5-5.1); SODIUM 133 mmol/L (135-145)
[2016-12-21 04:55] LABS: ALBUMIN SERUM 2.9 g/dL (3.5-5.0); BILIRUBIN, DIRECT 0.3 mg/dL (0.0-0.2); BILIRUBIN,TOTAL 1.3 mg/dL (0.2-2.0); PROTEIN TOTAL SERUM 5.9 g/dL (6.0-8.3)
[2016-12-21 17:10] LABS: HEMATOCRIT 37.7 % (35.0-45.0); HEMOGLOBIN 12.8 gm/dL (12.0-16.0)
== END 2016-12-22 14:45 | DRG 291 ==
LOC: CED 13:48 → CEDOF 13:49 → C5B 12-17 11:32 → CICCU2 12-17 22:43 → C5B 12-22 08:20
PROVIDERS: Emergency Medicine; Internal Medicine Cardiovascular Disease; Internal Medicine Pulmonary Disease
DX: I11.0 Hypertensive heart disease with heart failure (principal); J96.01 Acute respiratory failure with hypoxia; I50.23 Acute on chronic systolic (congestive) heart failure; I48.0 Paroxysmal atrial fibrillation; J44.9 Chronic obstructive pulmonary disease, unspecified; I36.1 Nonrheumatic tricuspid (valve) insufficiency; I34.0 Nonrheumatic mitral (valve) insufficiency; Z90.49 Acquired absence of other specified parts of digestive tract; Z77.22 Contact with and (suspected) exposure to environmental tobacco smoke (acute) (chronic); Z66 Do not resuscitate
CPT/HCPCS: 36415; 36600; 71010; 74000; 80048; 80053; 80076; 80162; 82308; 82553; 82803; 82947; 83605; 83735; 84100; 84443; 84484; 85014; 85018; 85025; 85027; 85610; 85730; 93005; 93306; 94640; 94660; 94760; 96374; 96375; 99285; J0282; J1160; J1650; J1940; J2405

== ENCOUNTER 2017-03-05 09:45 | Observation (INO) | payer MEDICARE ==
--- NOTE | ~2017-03-05 | EKG ---
PATIENT: SASKIA CAROLINA UNIT #: [id number] Ventricular Rate: 114 BPM Atrial Rate: 129 BPM QRS Duration: 86 ms Q-T Interval: 288 ms QTC Calculation(Bezet): 396 ms Calculated R [place]: 9 degrees Calculated T [place]: -170 degrees Diagnosis Line: Atrial fibrillation with rapid ventricular Diagnosis Line: response Diagnosis Line: Nonspecific ST and T wave abnormality , probably Diagnosis Line: digitalis effect Diagnosis Line: Abnormal ECG Diagnosis Line: When compared with ECG of 21-DEC-2016 06:57, Diagnosis Line: Nonspecific T wave abnormality has replaced Diagnosis Line: inverted T waves in Anterolateral leads Diagnosis Line: Confirmed by DEANN MELO MD ([id number]) on 03/05/2017 Diagnosis Line: 11:06:48 PM INTERPRETING MD: LORIE MADRIGAL
--- NOTE | ~2017-03-05 | OR ---
Unit #: [id number] #: [id number] Patient: SASKIA CAROLINA [id number] [address] [place], [place] [address] [id number] I MR#: [id number] NAME: SASKIA CAROLINA ROOM: 564 Date of Procedure: 03/05/2017 Admission Date: 03/05/2017 Surgeon: Brenenn Barrow M.D. : 1930 Attending Physician: Brennen Barrow M.D. Primary Care Physician: Melchor Serna M.D. OPERATIVE REPORT PROCEDURE PERFORMED Direct current shock cardioversion. INDICATIONS FOR PROCEDURE Atrial fibrillation and congestive heart failure. DESCRIPTION OF PROCEDURE The patient was brought to the cardiac catheterization lab, pulse oximetry showed 98% saturation. Telemetry was established. The patient was given 2 mg of intravenous Versed and 50 mcg of intravenous fentanyl. Once sleep was induced, using 200 joules per second of biphasic current DC shock cardioversion was performed that converted the rhythm to normal sinus. As the patient was being observed in the cath lab technologist, she reverted back to atrial fibrillation with rapid ventricular response. It was elected to attempt cardioversion one more time following intravenous Lopressor 5 mg and the patient was started on intravenous amiodarone following a bolus of 150 mg to load the system with amiodarone. Using 250 joules per second of biphasic current, DC shock cardioversion was again done which converted rhythm to normal sinus, but it reverted back to atrial fibrillation again with rapid ventricular response. It appears the patient has had atrial fibrillation for a long period of time and with diminished left ventricular systolic function, underlying aortic stenosis, probable sick sinus node syndrome, I doubt the patient would maintain normal sinus rhythm. It was elected to stop amiodarone and rate control will be achieved with beta blockers, and digitalis, anticoagulation would be continued with warfarin. She will be watched in the hospital for 24 hours before discharge tomorrow. FINAL DIAGNOSIS Unsuccessful direct current shock cardioversion, atrial fibrillation with rapid ventricular rate persists. Dictated by... Brennen Barrow M.D. AKU/everardol Unit #: [id number] #: [id number] Patient: SASKIA CAROLINA TD: 03/05/2017 23:01 JOB #: [id number] OPERATIVE REPORT Page 1 of 1 X Brennen Barrow MD PROCEDURE OPERATIVE NOTE
--- NOTE | ~2017-03-05 | DS ---
Unit #: [id number] #: [id number] Patient: SASKIA CAROLINA [id number] [address] [address] [id number] I MR#: [id number] NAME: SASKIA CAROLINA ROOM: 564 Age: 86 Sex: F Admission Date: 03/05/2017 : 1930 Discharge Date: 03/06/2017 Attending Physician: Brennen Barrow M.D. Primary Care Physician: Melchor Serna M.D. DISCHARGE SUMMARY DISCHARGE DIAGNOSES 1. Persistent atrial fibrillation, status post unsuccessful direct current cardioversion on 03/05/2017. 2. Chronic systolic congestive heart failure, compensated. 3. Cardiomyopathy with an ejection fraction of 20% to 25% on recent 2D echocardiogram 11/2016. 4. Valvular heart disease with severe aortic stenosis and mitral regurgitation. Moderate to severe tricuspid regurgitation. 5. Moderate to severe pulmonary hypertension. 6. Coronary artery disease, status post cardiac catheterization 06/2015 revealed mild aortic stenosis. Proximal left anterior descending 50%. Mid right coronary artery 50% to 60%. Ejection fraction 60%. 7. Hypertension. 8. Chronic obstructive pulmonary disease. 9. Nonsmoker but secondhand smoke exposure. DISCHARGE MEDICATIONS 1. Coumadin 3 mg p.o. daily. 2. Neurontin 300 mg p.o. t.i.d. 3. Digoxin 0.25 mg p.o. daily. 4. Coreg 6.25 mg p.o. b.i.d. 5. Mirapex 0.25 mg p.o. b.i.d. 6. Lasix 20 mg p.o. b.i.d. May take extra dose for shortness of breath or swelling. 7. Hydrocodone/acetaminophen 10/325 mg 1 tablet p.o. q.6 hours p.r.n. for pain. 8. Protonix 40 mg p.o. daily. 9. Potassium chloride 20 mEq p.o. daily. 10. Vitamin B complex 1 tablet p.o. daily. HOSPITAL COURSE This is an 86-year-old white female, known well to Dr. Barrow. The patient was recently admitted to [facility] in 11/2016 for acute hypoxic respiratory failure and recurrent atrial fibrillation on chronic anticoagulation with Coumadin. She was also treated for systolic congestive heart failure. A 2D echocardiogram was completed and revealed an ejection fraction of 20% to 25%, which is new from her previous study. She was also found to have worsening valvular heart disease with severe aortic stenosis and mitral regurgitation, as well as a moderate to severe tricuspid regurgitation and moderate to severe pulmonary hypertension. She previously had a cardiac catheterization in 06/2015, which revealed mild aortic stenosis with an ejection fraction of 60%. There were nonobstructive CAD with a 50% to 60% stenosis in the mid right coronary artery and 50% in the proximal LAD. During hospitalization in 11/2016, her Unit #: [id number] #: [id number] Patient: SASKIA CAROLINA medications were optimized. She was sent home on sotalol, warfarin, Lasix and potassium supplement. She presented to the office on 02/20/2017. Her sotalol was discontinued and she was changed to amiodarone. She was scheduled for direct current cardioversion. She presented to the hospital on 03/05/2017 as an outpatient for cardioversion. She was given one shock with 200 joules and briefly converted to sinus rhythm but within a couple of minutes reverted back to atrial fibrillation. It was elected to attempt cardioversion one more time. She was given IV Lopressor and started on IV amiodarone bolus to load the system. Using 250 joules per second of biphasic current she was given a second shock. Again she briefly was in sinus rhythm but reverted back to atrial fibrillation. It appears that the patient has had atrial fibrillation for a long period of time with a diminished left ventricular systolic function and underlying aortic stenosis and probable sick sinus syndrome. It is doubtful that the patient would maintain sinus rhythm. It was elected to stop amiodarone and to control her heart rate with beta-blockers and digoxin. Her INR has been therapeutic at 2.4. She was kept overnight for observation and is in stable condition. Telemetry reveals atrial fibrillation with rates currently in the 80s. With ambulation her heart rate gets up to the 120s and she is asymptomatic. There are no complaints of chest pain, shortness of breath, or worsening edema. Exam is negative for congestive heart failure. Postoperative labs are stable. She will be discharged home later today once her son gets off of work. She has been instructed to follow up with her primary care provider and to have an INR checked in one week with results called to Dr. Serna. She will need to followup with Dr. Barrow in six to eight weeks in the office. CHF education has been completed and she has PT, OT, and home health following as an outpatient. DIAGNOSTIC STUDIES LABORATORY STUDIES: White blood cell count 6.1, hemoglobin 10.3, hematocrit 37.1, platelets 258, sodium 137, potassium 3.9, chloride 107, CO2 20, BUN 16, creatinine 0.6, glucose 98, INR 2.4. CARDIOVASCULAR STUDIES: Electrocardiogram reveals atrial fibrillation with nonspecific ST-T wave changes. QTC 396 msec. PHYSICAL EXAMINATION VITAL SIGNS: Temperature 97.5, pulse 61, blood pressure 94/55 with a previous blood pressure of 115/57. CONSTITUTIONAL: This is an 86-year-old white female in no acute distress. SKIN: Warm and dry. NECK: Supple. No jugular venous distention. No hepatojugular reflux. Normal carotid upstrokes. No carotid bruits auscultated. HEART: S1 and S2. Irregular, irregular. Systolic ejection murmur at the right and left sternal border. No rubs or gallops. LUNGS: Bilateral breath sounds have good air entry throughout lung aceves. Respirations even and unlabored. No rales, rhonchi or wheezes. ABDOMEN: Soft, nontender, nondistended. Positive bowel sounds auscultated x4 quadrants. No ascites noted. EXTREMITIES: Bilateral extremities have trace pretibial pitting edema. DP and PT pulses 2+. Capillary refill after three seconds. DISCHARGE INSTRUCTIONS 1. Patient will be discharged home today. 2. Followup with primary care provider in one to two weeks. 3. PT and INR in one week per home health. Results called to Dr. Serna Unit #: [id number] #: [id number] Patient: SASKIA CAROLINA with primary care. 4. Followup with Dr. Barrow on 05/08/2017 at 2:00 p.m. 5. See discharge med rec. 6. CHF education completed. Dictated by... Kimberly Camejo APRN for Amanda Juarez TD: 03/06/2017 12:52 JOB #: [id number] DISCHARGE SUMMARY Page 1 of 1 X X DISCHARGE SUMMARY
[2017-03-05 10:24] LABS: HEMATOCRIT 37.1 % (35.0-45.0); HEMOGLOBIN 12.3 gm/dL (12.0-16.0); MEAN CELL VOLUME 94.1 FL (83-96); MEAN CORPUSCULAR HEMOGLOBIN 31.1 PG (28-34); MEAN PLATELET VOLUME 6.7 FL (6.5-11.5); RED BLOOD COUNT 3.95 X10e (3.90-5.30); RED CELL DISTRIBUTION WIDTH 14.7 % (11.0-15.5); WHITE BLOOD COUNT 6.1 X10e3 (4.0-10.5)
[2017-03-05] MEDS ORDERED: NEURONTIN300 MG PO (10:35)
[2017-03-05] MEDS ORDERED: LASIX20 MG PO (10:35)
[2017-03-05] MEDS ORDERED: HYDROCODON-ACE1 EAC5 PO (10:36)
[2017-03-05] MEDS ORDERED: PANTOPRAZOLE SO40 MG PO (10:36)
[2017-03-05] MEDS ORDERED: MAGNESIUM SULF100 MG PO (10:36)
[2017-03-05] MEDS ORDERED: POTASSIUM CHLO10 ME1 PO (10:37)
[2017-03-05] MEDS ORDERED: MIRAPEX0.25 MG PO (10:37)
[2017-03-05] MEDS ORDERED: COUMADIN PO (10:38)
[2017-03-05] MEDS ORDERED: B-COMPLEX PLUS1 EACH PO (10:38)
[2017-03-05] MEDS ORDERED: AMIODARONE PO (10:38)
[2017-03-05 10:39] LABS: INR 2.4; PARTIAL THROMBOPLASTIN TIME 38.7 SECONDS (23.5-31.3); PROTHROMBIN TIME (PATIENT) 26.2 SECONDS (9.6-11.5)
[2017-03-05] MEDS ORDERED: DIGITEK125 MCG PO (10:46)
[2017-03-05 10:49] LABS: BUN/CREATININE RATIO 26.66; CREATININE SERUM 0.6 mg/dL (0.6-1.4); GLOM FILT RATE Estimated 83.7 mL/min (>60); POTASSIUM 3.9 mmol/L (3.5-5.1)
[2017-03-06] MEDS ORDERED: LASIX20 MG PO (13:26)
[2017-03-06] MEDS ORDERED: COREG6.25 M1 PO (13:26)
== END 2017-03-06 15:00 | disposition home or self-care (01) ==
LOC: CCVL 09:45 → CEDOF 14:20 → CCVL 19:17 → CEDOF 19:17 → C5C 19:26 → CEDOF 19:26 → C5C 19:26
PROVIDERS: Internal Medicine Cardiovascular Disease
DX: I48.1 Persistent atrial fibrillation (principal); I11.0 Hypertensive heart disease with heart failure; I50.22 Chronic systolic (congestive) heart failure; I42.9 Cardiomyopathy, unspecified; I08.3 Combined rheumatic disorders of mitral, aortic and tricuspid valves; I27.2 Other secondary pulmonary hypertension; I25.10 Atherosclerotic heart disease of native coronary artery without angina pectoris; J44.9 Chronic obstructive pulmonary disease, unspecified; Z79.01 Long term (current) use of anticoagulants; E78.5 Hyperlipidemia, unspecified; K21.9 Gastro-esophageal reflux disease without esophagitis; Z88.2 Allergy status to sulfonamides; Z88.6 Allergy status to analgesic agent; Z88.8 Allergy status to other drugs, medicaments and biological substances
CPT/HCPCS: 36415; 80048; 85027; 85610; 85730; 92960; 93005; G0378; J0282; J0461; J2250; J2310; J3010; J3490